=== PATIENT | female | born 1985 | race Two or more races ===

== ENCOUNTER 2017-04-18 21:46 | Emergency (ER) | payer OTHER ==
[~2017-04-18] VITALS: Ht 170.2 cm; Wt 133.6 kg
[2017-04-18 22:24] LABS: HEMATOCRIT 37.5 % (36.0-46.0); MCH 25.6 PG (29.0-34.0); MEAN PLAT.VOLUME 10.2 uM^3 (9.5-12.4); PLATELET COUNT 278 K/uL (156-360); RBC DIS.WIDTH-CV 13.1 % (11.8-14.6); RBC DIS.WIDTH-SD 37.2 % (39-53); RED BLOOD COUNT 4.69 M/uL (3.80-5.20); WHITE BLOOD COUNT 9.7 K/uL (4.1-10.2)
[2017-04-18 22:38] LABS: CHLORIDE 106 mEq/L (99-109); POTASSIUM 3.7 mEq/L (3.7-5.4); SODIUM 142 mEq/L (136-147)
[2017-04-18 22:41] LABS: GLUCOSE 107 mg/dL (70-99)
[2017-04-18 22:42] LABS: ANION GAP 9 MEQ/L (2-14)
[2017-04-18 22:43] LABS: TOTAL BILIRUBIN 0.2 mg/dL (0.0-1.0)
[2017-04-18 22:44] LABS: ALKALINE PHOSPHATASE 84 IU/L (3-129); GFR ESTIMATE (CALCULATED) > 59 mL/min/
[2017-04-18 22:45] LABS: UREA NITROGEN (BUN) 14 mg/dL (9-23)
[2017-04-18 22:56] LABS: QUANTITATIVE HCG < 4.0 MIU/ML
[2017-04-18 23:40] LABS: ADD MIUA? NO; BILIRUBIN NEGATIVE; BLOOD NEGATIVE; COLOR YELLOW ((YELLOW)); GLUCOSE (STRIP) NEGATIVE; KETONES NEGATIVE; LEUKOCYTES NEGATIVE; NITRITE NEGATIVE; PROTEIN (STRIP) NEGATIVE; SPECIFIC GRAVITY 1.025 (1.000-1.030); UCUL ADDED? NO; UROBILINOGEN 0.2 MG/DL (0.2-1.0)
[2017-04-18 23:58] VITALS: BP 112/63
[2017-04-20 13:40] LABS: CHLAMYDIA TRACHOMATIS NEGATIVE; NEISSERIA GONORRHOEAE NEGATIVE
== END 2017-04-19 00:02 | disposition home or self-care (01) ==
LOC: RME 21:46 → EME 21:46 → RME 04-19 00:02
PROVIDERS: Physician Assistant Medical
DX: Z20.2 Contact with and (suspected) exposure to infections with a predominantly sexual mode of transmission (principal); N89.8 Other specified noninflammatory disorders of vagina; F17.200 Nicotine dependence, unspecified, uncomplicated
CPT/HCPCS: 80053; 81003; 84702; 85027; 87210; 87491; 87591; 99281; 99285; J0696

== ENCOUNTER 2017-07-04 23:28 | Emergency (ER) | payer OTHER | END 2017-07-04 23:59 | disposition left against medical advice (07) | LOC: EME 23:28 | DX: M54.2 Cervicalgia (principal); Z53.21 Procedure and treatment not carried out due to patient leaving prior to being seen by health care provider ==

== ENCOUNTER 2017-07-08 21:02 | Emergency (ER) | payer OTHER ==
[~2017-07-08] VITALS: Ht 170.2 cm; Wt 136.1 kg
[2017-07-08] MEDS ORDERED: MOTRIN600 MG PO (22:03)
[2017-07-08] MEDS ORDERED: FLEXERIL10 MG PO (22:03)
[2017-07-08 22:10] VITALS: BP 128/72
== END 2017-07-08 22:10 | disposition home or self-care (01) ==
LOC: EME 21:02
DX: M54.6 Pain in thoracic spine (principal); F17.200 Nicotine dependence, unspecified, uncomplicated
CPT/HCPCS: 99281; 99283